=== PATIENT | female | born 1985 | race Native Hawaiian/Other Pacific Islander ===

== ENCOUNTER 2018-10-20 18:33 | Emergency (ER) | payer MEDICARE, MEDICAID ==
[2018-10-20 19:00] VITALS: O2SAT 99
[2018-10-20] MEDS ORDERED: Adacel Vial IM ONE ×2 (19:13→19:28)
[2018-10-20] MEDS ORDERED: TORAdol 30 mg Injection IM ONE (19:13)
[2018-10-20] MEDS ORDERED: TORAdol 30 mg Injection ONE (19:28)
--- NOTE | 2018-10-20 20:47 | ERPHSYRPT ---
- History of Present Illness Source: patient Exam Limitations: no limitations Patient Subjective Stated Complaint: pt reports a refrigerator fell on her right leg approx 3 days ago causing pain and swelling. pt denies any other injuries at this time. Triage Nursing Assessment: pt is aox3, pupils perrl, afebrile, resps easy and non labored, radial pulses strong and equal, cap refill < 3 seconds, pt skin pink warm dry. wound with surrounding redness measuring 3 cm x 3 cm noted to the right weaver. no drainage noted at this time. wound bed noted to be in advanced stages of healing. Physician History: Patient had a refrigerator fall on her right lower extremity 3 days ago. Patient has a small laceration to mid anterior right lower leg that has healed in. Method of Injury: direct blow Occurred: days ago (3) Quality: aching, throbbing Severity of Pain-Max: moderate Severity of Pain-Current: moderate Lower Extremities Pain: leg: right (lower leg on the front, mid shaft) Modifying Factors: Improves With: movement Associated Symptoms: No unable to bear weight, No fainted, No popping sensation Allergies/Adverse Reactions: acetaminophen [From Tylenol] Allergy (Verified 10/20/18 19:00) Penicillins Allergy (Verified 10/20/18 19:00) Home Medications: Clonazepam 1 mg PO [id number] PRN 10/20/18 [History] Levetiracetam [Keppra 500 mg ] 500 mg PO DAILY 10/20/18 [History] PHENobarbital [Phenobarbital] 64.8 mg PO BID 10/20/18 [History] Phenytoin Sod Extended 100 mg* [Dilantin 100 MG] 200 mg PO BID 10/20/18 [ History] Zolpidem Tartrate 10 mg PO HS 10/20/18 [History] Hx Tetanus, Diphtheria Vaccination/Date Given: Yes Hx Influenza Vaccination/Date Given: No Hx Pneumococcal Vaccination/Date Given: No Immunizations Up to Date: Yes - Review of Systems Constitutional: No Fever, No Chills Eyes: No Eye Pain, No Vision Changes Ears, Nose, & Throat: No Nose Pain, No Nose Congestion, No Nose Discharge, No Mouth Pain, No Mouth Swelling Respiratory: No Cough, No Dyspnea Cardiac: No Chest Pain, No Edema, No Syncope Abdominal/Gastrointestinal: No Abdominal Pain, No Nausea, No Vomiting, No Diarrhea Genitourinary Symptoms: No Hematuria, No Flank Pain Musculoskeletal: No Back Pain, No Neck Pain Skin: No Induration, No Rash Neurological: No Dizziness, No Focal Weakness, No Sensory Changes Psychological: No Symptoms Endocrine: No Symptoms Hematologic/Lymphatic: No Easy Bleeding, No Easy Bruising All Other Systems: Reviewed and Negative - Past Medical History Neurological History: Seizures Respiratory History: COPD Musculoskeletal History: Arthritis Psycho-Social History: Anxiety, Depression Female Reproductive Disorders: Ovarian Cancer - Past Surgical History Past Surgical History: Yes Female Surgical History: Tubal Ligation, Other - Social History Smoking Status: Current every day smoker Drug Use: none Patient Lives Alone: No - Female History Hx Now: No - Nursing Vital Signs Nursing Vital Signs: Initial Vital Signs Temperature 97.9 F 10/20/18 18:43 Pulse Rate 65 10/20/18 18:43 Respiratory Rate 20 10/20/18 18:43 Blood Pressure 114/63 10/20/18 18:43 O2 Sat by Pulse Oximetry 99 10/20/18 18:43 Pain Scale Pain Intensity 10 - Physical Exam General Appearance: alert Eyes, Ears, Nose, Throat Exam: moist mucous membranes Neck Exam: normal inspection, non-tender, supple, full range of motion Cardiovascular/Respiratory Exam: chest non-tender, normal breath sounds, regular rate/rhythm, heart sounds normal, no respiratory distress, normal peripheral pulses Gastrointestinal/Abdominal Exam: non-tender, soft, No guarding, No tenderness Back Exam: normal inspection, No vertebral tenderness Hips Exam: bilateral: non-tender, normal inspection, normal range of motion, no evidence of injury Legs Exam: right leg: abrasions (left lower leg anterior aspect), bone tenderness (left lower leg anterior aspect), pain (left lower leg anterior aspect), left leg: no evidence of injury, bilateral leg: non-tender, normal inspection, normal range of motion Knees Exam: bilateral knee: non-tender, normal inspection, normal range of motion, no evidence of injury Ankle Exam: bilateral ankle: non-tender, normal inspection, normal range of motion, no evidence of injury Foot Exam: bilateral foot: non-tender, normal inspection, normal range of motion , no evidence of injury Neuro/Tendon Exam: normal sensation, normal motor functions, No sensory deficit Mental Status Exam: alert, oriented x 3, cooperative Skin Exam: normal color, warm, dry, abrasion SpO2 Interpretation: normal SpO2: 99 O2 Delivery: Room Air - Course Nursing assessment & vital signs reviewed: Yes - Radiology Exams Right Lower Leg X-ray Interpretation: Interpreted by me, Negative, No Fracture, Nml Alignment, Nml Soft Tissues Ordered Tests: Active Orders 24 hr Category Date Time Status LOWER LEG Stat Exams 10/20/18 20:04 Taken Medication Summary Discontinued Medications Generic Name Dose Route Start Last Admin Trade Name Freq PRN Reason Stop Dose Admin Diphtheria/Tetanus/Acell Pertussis 0.5 ml 10/20/18 19:13 10/20/18 19:39 Adacel Vial IM 10/20/18 19:14 0.5 ml .ONCE ONE Administration Diphtheria/Tetanus/Acell Pertussis Confirm 10/20/18 19:28 Adacel Vial Administered 10/20/18 19:29 Dose 0.5 ml IM .STK-MED ONE Ketorolac Tromethamine 60 mg 10/20/18 19:13 10/20/18 19:38 Toradol 30 Mg Injection IM 10/20/18 19:14 60 mg STAT ONE Administration Ketorolac Tromethamine Confirm 10/20/18 19:28 Toradol 30 Mg Injection Administered 10/20/18 19:29 Dose 60 mg .ROUTE .STK-MED ONE - Progress Progress: improved Progress Note: 10/20/18 20:51 Pain has significantly improved. Neurovascularly intact distal to the injury of the right lower extremity Counseled pt/family regarding: diagnosis, need for follow-up, rad results - Departure Departure Disposition: Home Clinical Impression: Contusion of right lower leg, initial encounter, Abrasion, right lower leg, initial encounter Condition: Good Critical Care Time: No Referrals: TANNA BOLAÑOS, [facility] [Primary Care Provider] - Instructions: Contusion (DC), Skin Abrasions (DC), Tdap Vaccine Prescriptions: Etodolac 400 mg [Lodine 400 mg] 400 mg PO BID PRN PRN #20 tablet PRN Reason: Pain
[2018-10-20 20:57] VITALS: BP 102/57; PULSE 62
--- NOTE | 2018-10-21 08:57 | XRAY ---
Indication: Pain/bruising following injury. Comparison: None 2 views of the right lower leg demonstrates mild lower leg soft tissue swelling. No other bony, articular, or soft tissue abnormalities.
== END 2018-10-20 21:04 | disposition home or self-care (01) ==
LOC: ED 18:33
DX: S80.11XA Contusion of right lower leg, initial encounter (principal); S80.811A Abrasion, right lower leg, initial encounter; W22.8XXA Striking against or struck by other objects, initial encounter
CPT/HCPCS: 73590; 90471; 90715; 96372; 99284; J1885